=== PATIENT | male | born 1955 | race Caucasian/White ===

== ENCOUNTER 2020-01-22 13:49 | Outpatient (CLI) | payer OTHER, SELFPAY ==
[2020-01-22 16:30] LABS: SARS-CoV-2 RNA PCR Negative
== END 2020-01-22 13:50 ==
LOC: ANHCOVIDDT 02-15 13:49
PROVIDERS: PCP Family Medicine Adolescent Medicine; Visit Provider Internal Medicine Gastroenterology
DX: Z01.812 Encounter for preprocedural laboratory examination (principal); Z20.828 Contact with and (suspected) exposure to other viral communicable diseases
CPT/HCPCS: 87635; C9803; U0003

== ENCOUNTER 2020-01-25 01:45 | Day surgery (SDC) | payer OTHER, SELFPAY ==
[2020-01-14 13:16] VITALS: BMI 22.7
[2020-01-25 07:22] VITALS: BP 119/67; PULSE 82; RESP 18; TEMP 36.1; O2SAT 100; BMI 22.3
[2020-01-25] MEDS: LACTATED RINGERS 1,000 ML 150 ML IV CONT (07:30)
--- NOTE | 2020-01-25 07:53 | WPDGICN ---
Assessment and Plan Assessment and plan (1) Encounter for screening colonoscopy: Code(s): Z12.11 - Encounter for screening for malignant neoplasm of colon Status: Acute Assessment and Plan: Patient presents for screening colonoscopy. Last exam was 10 years ago. Appears to be at average risk for polyps. Plan is for colonoscopy at this time follow-up depending on results. GI Consult Note Consult date/time: 01/25/20 07:53 HPI: Quinn Bedolla is a 64 year old male seen in evaluation at the request of Dr. Juma Brady. Patient presents for neoplasia screening. Patient's current weight appetite bowel movements are normal. He denies abdominal pain. He has had no bleeding. His last colonoscopy was more than 10 years ago. Patient's recent past history is significant for atherosclerotic heart disease. He had a heart stent placed in 2003 and is on Plavix. This will be held briefly for endoscopy. Review of Systems Review of Systems: All systems reviewed & are unremarkable except as noted in HPI and below PMFSH Social History Social History Smoking status: Never smoker Substance use type: does not use Living arrangements: with family Gender identity (if verbalized by the patient): Male Sexual Orientation (if Verbalized by the Patient): Straight or Heterosexual Spiritual care concerns: No Meds Home Medications and Allergies Home Medications Medication Instructions Recorded Confirmed Type aspirin [Aspirin Low Dose] 81 mg PO DAILY 01/14/20 01/14/20 History atorvastatin [Lipitor] 40 mg PO DAILY 01/14/20 01/14/20 History clopidogrel [Plavix] 75 mg PO 01/14/20 History Allergies Allergy/AdvReac Type Severity Reaction Status Date / Time No Known Allergies Allergy Unverified 01/25/20 07:21 Vital Signs Vital Signs - 24 hr 01/25/20 07:22 Temperature 97.0 F L Pulse Rate 82 Respiratory Rate 18 Blood Pressure 119/67 Pulse Oximetry 100 Exam Narrative: Exam Narrative: Physical exam reveals Vital Signs to be stable. HEENT exam unremarkable. Lungs are clear to auscultation and percussion. Heart is without murmur or extra sounds. Abdominal exam bowel sounds are present soft nontender with no organomegaly. Digital external rectal exam is normal.
--- NOTE | 2020-01-25 08:06 | WPDANESEPPF ---
Anes - Initial Pre Proc Eval Procedure: Operation Date: 01/25/20 08:30 Proposed Procedures p Screening Colonoscopy - Kristofer Guerrero MD Date/Time: 01/25/20 08:06 Surgeon: Kristofer Guerrero MD Pre Op Diagnosis: neoplasm screening Patient Data Age: 64 Gender: M Height: 5 ft 10 in Weight: 70.6 kg Last Vital Signs Temp 97.0 F L 01/25/20 07:22 Pulse 82 01/25/20 07:22 Resp 18 01/25/20 07:22 BP 119/67 01/25/20 07:22 Pulse Ox 100 01/25/20 07:22 Allergies Allergy/AdvReac Type Severity Reaction Status Date / Time No Known Allergies Allergy Unverified 01/25/20 07:21 Home Medications Medication Instructions Recorded Confirmed Type aspirin [Aspirin Low Dose] 81 mg PO DAILY 01/14/20 01/14/20 History atorvastatin [Lipitor] 40 mg PO DAILY 01/14/20 01/14/20 History clopidogrel [Plavix] 75 mg PO 01/14/20 History Patient hx anesthesia problems: none Family hx anesthesia problems: none PMFSH Past Medical History Medical History (Updated 01/25/20 @ 08:03 by Harrison Mo MD) CAD (coronary artery disease) Hyperlipidemia Surgical History Surgical History (Updated 01/25/20 @ 08:03 by Harrison Mo MD) Stented coronary artery Social History Social History Smoking status: Never smoker Substance use type: does not use Living arrangements: with family Gender identity (if verbalized by the patient): Male Sexual Orientation (if Verbalized by the Patient): Straight or Heterosexual Spiritual care concerns: No Anes - Eval Final PreProcedure Day of Procedure 01/25/20 08:06 Patient weight: normal Heart: regular rate and rhythm Lungs: clear to auscultation Airway: Mallampati scale class II Neurological: alert and oriented Last oral intake: >/= 8 hours ASA classification: III Emergent: no Anesthetic plan: proceed Anesthesia type and monitoring: general GIVS and standard monitoring Informed Consent: The patient's anesthetic plan and its attendant risks and benefits were discussed with the patient/family/POA. Questions were solicited and answers provided to the satisfaction of the patient/family/POA.
[2020-01-25 09:01] VITALS: BP 116/73; PULSE 74; RESP 21; O2SAT 100
[2020-01-25 09:11] VITALS: BP 110/72; PULSE 69; RESP 16; O2SAT 100
[2020-01-25 09:21] VITALS: BP 121/66; PULSE 71; RESP 21; O2SAT 99
== END 2020-01-25 09:30 | disposition home or self-care (01) ==
PROVIDERS: PCP Family Medicine Adolescent Medicine; Visit Provider Internal Medicine Gastroenterology
PROC: 0DJD8ZZ Inspection of Lower Intestinal Tract, Via Natural or Artificial Opening Endoscopic (ICD-10-PCS; CPT 45378; principal; 2020-01-25 08:30)
DX: Z12.11 Encounter for screening for malignant neoplasm of colon (principal); K64.8 Other hemorrhoids; I25.10 Atherosclerotic heart disease of native coronary artery without angina pectoris; E78.5 Hyperlipidemia, unspecified; Z95.5 Presence of coronary angioplasty implant and graft; Z79.02 Long term (current) use of antithrombotics/antiplatelets; Z79.82 Long term (current) use of aspirin
CPT/HCPCS: 45378; J2704; J7120